=== PATIENT | male | born 1970 | race Caucasian/White ===

== ENCOUNTER 2019-05-31 16:15 | Emergency (ER) | payer OTHER ==
[2019-05-31 16:35] VITALS: BP 117/60
--- NOTE | 2019-05-31 17:26 | UC ---
Skin Complaint HPI - HPI Summary HPI Summary: 49 y/o male PMHX DM tyep II presents to the urgent care accompany by c/o a painful mid back cyst that is getting bigger for the past 2 days. Pt reports he has had several sebaceous cyst in the past. This one in particular he has had it for the past 3 years. However, for the past 2 days is was become red, painful and bigger. His tried to pop it yesterday and some discharge was expressed. His mother and told him to come to the urgent care since it looks infected. Today he feels tire w/ lost of energy, but no fever or chills. Pain at touch is 8/10. Pt denies Hx of MRSA, SOB, dizziness, DANIELS, chest pain, abdominal pain, N/V/D. - History of Current Complaint Chief Complaint: UCSkin Time Seen by Provider: 05/31/19 17:24 Stated Complaint: WOUND RECHECK Hx Obtained From: Patient Onset/Duration: Gradual Onset, Lasting Weeks - 3 years w/ sebaceous cyst, Still Present, Worse Since - 2 days Skin Exposure Onset/Duration: Weeks Ago - 3 years ago, Worse Since: - 2days Timing: Constant Onset Severity: Mild Current Severity: Severe Pain Intensity: 8 Pain Scale Used: 0-10 Numeric Location: Discrete - mid back painful cyst Character: Swelling, Redness, Raised, Painful Aggravating Factor(s): Touch Alleviating Factor(s): OTC Meds Associated Signs & Symptoms: Positive: Rash - mid back w/ painful, red cyst, Drainage - yellowish, Tenderness. Negative: Nausea, Vomiting, Numbness, Fever, Chills, Cough, Wheezing, Chest Pain, Hoarseness, Abdominal Pain, Lightheadedness , Red Streaks Related History: Other: - multiple sebaceosu cysts in the past - Allergy/Home Medications Allergies/Adverse Reactions: Allergies Allergy/AdvReac Type Severity Reaction Status Date / Time cephalexin [From Keflex] Allergy Hives Verified 06/02/19 14:55 Home Medications: Home Medications Buprenorp/Nalox 8-2 MG FILM [Suboxone 8 mg-2 mg Sl Film] 1 tab PO BID 05/31/19 [ History Confirmed 05/31/19] Ertugliflozin/Sitagliptin [Steglujan 15-100 mg Tablet] 1 tab PO QPM 05/31/19 [ History Confirmed 05/31/19] Insulin Glargine,Hum.rec.anlog [Solo Tobias U-100] 56 units PO QAM [History Confirmed 05/31/19] Methocarbamol 1 tab PO BID PRN 05/31/19 [History Confirmed 05/31/19] PMH/Surg Hx/FS Hx/Imm Hx Previously Healthy: Yes Endocrine History: Diabetes, Dyslipidemia Other Endocrine History: Psoriasis Cardiovascular History: Hypertension - Surgical History Surgical History: Yes Surgery Procedure, Year, and Place: achilles R. appy. sinuses. sebaceous cyst on neck. R wrist fx. Last surgery was 2011: R wrist Other Surgical History: Colonoscopy with polyps. - Family History Known Family History: Positive: Hypertension, Diabetes - Social History Occupation: Employed Full-time Lives: With Family Alcohol Use: Daily Alcohol Amount: 2-3/day Substance Use Type: Marijuana, Prescribed Smoking Status (MU): Never Smoked Tobacco - Immunization History Most Recent Influenza Vaccination: fall 2014 Most Recent Tetanus Shot: unk Most Recent Pneumonia Vaccination: <10 yrs ago Review of Systems All Other Systems Reviewed And Are Negative: Yes Constitutional: Positive: Fatigue Skin: Positive: Other - mid back w/ painful, red cyst Eyes: Positive: Negative ENT: Positive: Negative Respiratory: Positive: Negative Cardiovascular: Positive: Negative Gastrointestinal: Positive: Negative Genitourinary: Positive: Negative Motor: Positive: Negative Neurovascular: Positive: Negative Musculoskeletal: Positive: Negative Neurological: Positive: Negative Psychological: Positive: Negative Is Patient Immunocompromised?: No Physical Exam - Summary Physical Exam Summary: Vital Signs Reviewed: Yes General: well developed, well nourished obese male sitting in the examining table w/o any apparent distress Eye Exam: Normal Eyes: Positive: Conjunctiva Clear - PERRLA, EOMI, fundi grossly normal ENT: Positive: Normal ENT inspection, Hearing grossly normal, Pharynx normal, TMs normal Neck: Positive: Supple, Nontender, No Lymphadenopathy Respiratory: Positive: Chest non-tender, Lungs clear, Normal breath sounds, No respiratory distress Cardiovascular: Positive: RRR, No Murmur, Pulses Normal, Brisk Capillary Refill Abdomen Description: Positive: Nontender, No Organomegaly, Soft. Negative: CVA Tenderness (R), CVA Tenderness (L) Bowel Sounds: Positive: Present Musculoskeletal: Positive: Strength Intact, ROM Intact, No Edema Neurological: Positive: Alert, Muscle Tone Normal Psychological Exam: Normal Skin: Positive: positive RT side of mid back with an erythematous pustule that is indurated and fluctuant, tender to palpation, swollen, and warm to touch about .2.0x2.0cm in size, no streaking. FROM of back and no mid line tenderness on palpation., sensation is intact, capillary refill WNL, reflexes WNL Triage Information Reviewed: Yes Vital Signs: Initial Vital Signs Temp 97.9 F 05/31/19 16:29 Pulse 66 05/31/19 16:29 Resp 18 05/31/19 16:29 BP 117/60 05/31/19 16:29 Pulse Ox 98 05/31/19 16:29 Course/Dx - Course Course Of Treatment: 49 y/o male PMHX DM tyep II presents to the urgent care accompany by c/o a painful mid back cyst that is getting bigger for the past 2 days. Pt reports he has had several sebaceous cyst in the past. This one in particular he has had it for the past 3 years. However, for the past 2 days is was become red, painful and bigger. His tried to pop it yesterday and some discharge was expressed. His mother and told him to come to the urgent care since it looks infected. Today he feels tire w/ lost of energy, but no fever or chills. Pain at touch is 8/10. Pt denies Hx of MRSA, SOB, dizziness, DANIELS, chest pain, abdominal pain, N/V/D. Hx obtained. pt is hemodynamically stable. A&OX3, Vitals : WNL. Pt w/ positive RT side of mid back with an erythematous pustule that is indurated and fluctuant, tender to palpation, swollen, and warm to touch about .2.0x2.0cm in size, on examination.I&D of abscess procedure:The procedure was explained and consent obtained. [place] protocol performed. The wound was anesthetized with 3mL of Lido 1% with good anesthesia. Sterile drape and prep were done. The fluctuant center was incised with #11 blade scalpel. A large amount of caseous material was expressed . wound cultures obtained and sent to lab top r/o MRSA. The wound was probed for loculated areas and irrigated with normal saline. The wound was packed loosely with wick or left open. Bacitracin topical ointment applied and wound covered with sterile dressing. The patient tolerated the procedure well. Pt Rx Bactrim PO and Bacitracin toipcial oint as directed below. Advised to return to the urgent care or his Environmental Services Manager at [place] in 2 days for wound check up and packing removal. Pt advised fever develops and pain increase despite ABX to go immediately to the ER for further management. Pt understood and agreed with D/C instructions. Left the clinic ambulating A&OX3. - Differential Diagnoses - Skin Complaint Differential Diagnoses: Abscess, Cellulitis, Contact Dermatitis, MRSA - Diagnoses Provider Diagnosis: Abscess of back Discharge ED - Sign-Out/Discharge Documenting (check all that apply): Patient Departure - D/C home All imaging exams completed and their final reports reviewed: No Studies - Discharge Plan Condition: Stable Disposition: HOME Prescriptions: Bacitracin OINTMENT* 1 applic TOPICAL BID #1 tube Sulfamethox/Trimethoprim DS* [Bactrim DS 800/160 TAB*] 1 tab PO BID #20 tab Patient Education Materials: Abscess (ED) Referrals: Tomy Richardson MD [Primary Care Provider] - 2 Days Additional Instructions: 1-Please take full course of Bactrim antibiotic to avoid resistance. Keep wound clean and dry with a sterile dressing. Apply bacitracin topical as directed 2- F/u wound check up in 2 days with your PCP or at the urgent care for removal of packing 3-. Take Tylenol PO q6-8hrs prn for pain or swelling. 4-If you develop fever or redness despite antibiotic please go to the ER immediately or return to the Urgent care. 5- Wound culture sent to lab, if any abnormal result you will receive a call from us. 6- Please f/u w/ your Environmental Services Manager appt at [place] next week for further management - Billing Disposition and Condition Condition: STABLE Disposition: Home
[2019-05-31] MEDS ORDERED: Lidocaine 1% MPF ** 5 ML VIAL INJ ONE (18:03)
== END 2019-05-31 19:20 | disposition home or self-care (01) ==
LOC: UCEAST 16:15
DX: L02.212 Cutaneous abscess of back [any part, except buttock and flank] (principal)
CPT/HCPCS: 87070; 87077; 87186; 87205; 87640; 87641; 99212; G0463

== ENCOUNTER 2019-06-02 13:37 | Emergency (ER) | payer OTHER ==
[2019-06-02 14:55] VITALS: BP 149/91
--- NOTE | 2019-06-02 15:15 | UC ---
Skin Complaint HPI - HPI Summary HPI Summary: 49-year-old male comes in with a chief complaint of infected sebaceous cyst. On May 31, 2019 patient was here with an infected sebaceous cyst that was drained and packed. Patient was started on Bactrim. Cultures come back with Staphylococcus. No susceptibilities are available yet. Overall the patient says he feels better he has less pain. He reports he has a follow-up his primary care doctor to get a cyst removed in a week and a half. - History of Current Complaint Chief Complaint: UCSkin Time Seen by Provider: 06/02/19 14:48 Stated Complaint: WOUND CHECK Pain Intensity: 7 - Allergy/Home Medications Allergies/Adverse Reactions: Allergies Allergy/AdvReac Type Severity Reaction Status Date / Time cephalexin [From Keflex] Allergy Hives Verified 06/02/19 14:55 PMH/Surg Hx/FS Hx/Imm Hx Previously Healthy: Yes - CHRONIC BACK PAIN Endocrine History: Diabetes, Dyslipidemia Cardiovascular History: Hypertension GI/ History: Gastroesophageal Reflux - Surgical History Surgical History: Yes Surgery Procedure, Year, and Place: achilles R. appy. sinuses. sebaceous cyst on neck. R wrist fx. Last surgery was 2011: R wrist Other Surgical History: Colonoscopy with polyps. - Family History Known Family History: Positive: Hypertension, Diabetes - Social History Alcohol Use: Daily Alcohol Amount: 2-3/day Substance Use Type: Marijuana, Prescribed Smoking Status (MU): Never Smoked Tobacco - Immunization History Most Recent Influenza Vaccination: fall 2014 Most Recent Tetanus Shot: unk Most Recent Pneumonia Vaccination: <10 yrs ago Review of Systems All Other Systems Reviewed And Are Negative: Yes Constitutional: Positive: Negative Skin: Positive: Other - SEE HPI Eyes: Positive: Negative ENT: Positive: Negative Respiratory: Positive: Negative Cardiovascular: Positive: Negative Gastrointestinal: Positive: Negative Motor: Positive: Negative Neurovascular: Positive: Negative Musculoskeletal: Positive: Negative Neurological: Positive: Negative Psychological: Positive: Negative Is Patient Immunocompromised?: No Physical Exam Triage Information Reviewed: Yes Appearance: Well-Appearing, No Pain Distress, Well-Nourished Vital Signs: Initial Vital Signs Temp 97.9 F 06/02/19 14:51 Pulse 71 06/02/19 14:51 Resp 15 06/02/19 14:51 BP 149/91 06/02/19 14:51 Pulse Ox 95 06/02/19 14:51 Vital Signs Reviewed: Yes Eye Exam: Normal Eyes: Positive: Conjunctiva Clear Neck: Positive: Supple Respiratory: Positive: No respiratory distress Musculoskeletal: Positive: Strength Intact, ROM Intact Neurological: Positive: Alert Psychological: Positive: Age Appropriate Behavior Skin: Positive: Other - There is a sebaceous cyst in the middle of the back. Dressing was removed. I removed the gauze packing. Was able to express more of the contents which did include some pus. Course/Dx - Course Course Of Treatment: Wound cultures coming back with Staphylococcus lugdenensis. Susceptibilities are pending. Patient is improving on Bactrim therefore we'll continue the Bactrim. Patient reports having a follow-up his primary care doctor to have a sebaceous cyst removed in a week and a half. He will be out of his initial 10 day prescription for Bactrim at that time therefore I have prescribed 7 more days of Bactrim. If with the sensitivities come back Bactrim is not an appropriate antibiotic his antibiotic will need changed. Otherwise follow-up his primary care doctor get reevaluated sooner if worse or any questions or concerns. - Diagnoses Provider Diagnosis: Infected sebaceous cyst of skin Discharge ED - Sign-Out/Discharge Documenting (check all that apply): Patient Departure All imaging exams completed and their final reports reviewed: No Studies - Discharge Plan Condition: Stable Disposition: HOME Prescriptions: Sulfamethox/Trimethoprim DS* [Bactrim DS 800/160 TAB*] 1 tab PO BID #14 tab Patient Education Materials: Abscess (ED) Referrals: Tomy Richardson MD [Primary Care Provider] - Additional Instructions: FOLLOW UP WITH YOUR DOCTOR SCHEDULED. GET RECHECKED SOONER IF YOUR CONDITION WORSENS OR ANY QUESTIONS OR CONCERNS. - Billing Disposition and Condition Condition: STABLE Disposition: Home
== END 2019-06-02 15:40 | disposition home or self-care (01) ==
LOC: UCEAST 13:37
DX: L72.3 Sebaceous cyst (principal); L08.9 Local infection of the skin and subcutaneous tissue, unspecified; E11.9 Type 2 diabetes mellitus without complications; E78.5 Hyperlipidemia, unspecified; I10 Essential (primary) hypertension; K21.9 Gastro-esophageal reflux disease without esophagitis
CPT/HCPCS: 99212; G0463